=== PATIENT | female | born 1980 | race Caucasian/White ===

== ENCOUNTER → 2017-07-03 | Outpatient (REF) | payer BC | LOC: M LAB REF 10:07 | PROVIDERS: ATTEND Physician Assistant | DX: N76.0 Acute vaginitis (principal) ==

== ENCOUNTER 2018-08-30 05:57 | Day surgery (SDC) | payer BC ==
[~2018-08-30] VITALS: Ht 154.9 cm; Wt 59.4 kg
[~2018-08-30 05:57] MED LIST: DAYSTAB
[2018-08-30] MEDS ORDERED: LR 1,000 ML IV SCH ×3 (06:15→10:45)
[2018-08-30 06:34] LABS: HEMATOCRIT 42.9 % (36.0-47.0); HEMOGLOBIN 14.9 g/dl (12.0-15.5); MEAN CORPUSCULAR HEMOGLOBIN 30.8 pg (27.0-33.0); MEAN CORPUSCULAR HGB CONC 34.7 g/dl (32.0-36.5); MEAN CORPUSCULAR VOLUME 88.8 fl (80.0-96.0); PLATELET COUNT, AUTOMATED 202 10^3/uL (150-450); RED BLOOD COUNT 4.83 10^6/uL (4.00-5.40); WHITE BLOOD COUNT 6.2 10^3/uL (4.0-10.0)
[2018-08-30 06:52] LABS: URINE PREG TEST NEGATIVE (NEGATIVE)
[2018-08-30] MEDS ORDERED: ACETAMINOPHEN 650 MG SUPP PR ONE (07:00)
[2018-08-30] MEDS ORDERED: ONDANSETRON 4MG/2ML VIAL (J2405) As Ordered ONE ×2 (07:06→10:07)
[2018-08-30] MEDS ORDERED: PROPOFOL 200 MG/20 ML VIAL As Ordered ONE (07:06)
[2018-08-30] MEDS ORDERED: ROCURONIUM BROMIDE 50 MG/5 ML VIAL As Ordered ONE (07:06)
[2018-08-30] MEDS ORDERED: NEOSTIGMINE 10 MG/10 ML VIAL (J2710) As Ordered ONE (07:06)
[2018-08-30] MEDS ORDERED: LIDOCAINE 2% INJ 100 MG/5 ML SDV (FOR ANES.) As Ordered ONE (07:06)
[2018-08-30] MEDS ORDERED: KETOROLAC 60 MG/2 ML VIAL (J1885) As Ordered ONE (07:06)
[2018-08-30] MEDS ORDERED: dexameTHASONE 4 MG/ML 1ML VIAL (J1100) As Ordered ONE (07:06)
[2018-08-30] MEDS ORDERED: GLYCOPYRROLATE INJ 0.2 MG/ML 2 ML VIAL As Ordered ONE (07:06)
[2018-08-30] MEDS ORDERED: fentaNYL 100 MCG/2 ML INJECTION (J3010) As Ordered ONE ×2 (07:07→08:35)
[2018-08-30] MEDS ORDERED: MIDAZOLAM INJ 2 MG/2 ML VIAL (J2250) As Ordered ONE (07:07)
[2018-08-30] MEDS ORDERED: ACETAMINOPHEN 650 MG SUPP As Ordered ONE (07:15)
[2018-08-30] MEDS ORDERED: BUPIVACAINE/EPIN 0.25% 30 ML VIAL As Ordered ONE (07:15)
[2018-08-30] MEDS ORDERED: SUGAMMADEX SODIUM 500 MG/5 ML VIAL (BRIDION) As Ordered ONE (08:12)
[2018-08-30] MEDS ORDERED: ceFAZolin 2 GM/D5W 50 ML IV BAG (J0690 PER 500MG) As Ordered ONE (08:37)
[2018-08-30] MEDS ORDERED: IBUP80TA PO (10:15)
[2018-08-30] MEDS ORDERED: PERCOCET PO (10:15)
[2018-08-30] MEDS ORDERED: MEPERIDINE INJ 25 MG/ML VIAL (J2175) As Ordered ONE (10:19)
[2018-08-30] MEDS ORDERED: METOCLOPRAMIDE INJ 10MG/2ML VIAL (J2765) As Ordered ONE (10:19)
[2018-08-30] MEDS: MEPERIDINE INJ 25 MG/ML VIAL (J2175) IV PRN ×2 (10:25→10:43)
[2018-08-30] MEDS ORDERED: PERCOCET 5MG/325MG TAB PO PRN ×2 (10:30→10:45)
[2018-08-30] MEDS ORDERED: ONDANSETRON 4MG/2ML VIAL (J2405) IV PRN (10:30)
[2018-08-30] MEDS ORDERED: METOCLOPRAMIDE INJ 10MG/2ML VIAL (J2765) IV PRN (10:30)
[2018-08-30] MEDS ORDERED: fentaNYL 100 MCG/2 ML INJECTION (J3010) IV PRN (10:30)
[2018-08-30] MEDS ORDERED: KETOROLAC 30 MG/ML VIAL (J1885) IV PRN (10:30)
--- NOTE | 2018-08-30 10:35 | RO ---
DATE OF PROCEDURE: 08/30/2018 PREOPERATIVE DIAGNOSIS: 1. Menometrorrhagia 2. Desires permanent tubal sterilization POSTOPERATIVE DIAGNOSIS: 1. Menometrorrhagia 2. Desires permanent tubal sterilization 3. Uterine perforation PROCEDURE:1. Laparoscopic bilateral tubal ligation using filschie clips 2. Dilation and curettage 3. Attempted novasure ablation 4. Laparoscopic uterine perforation repair ANESTHESIA:General SURGEON: Davon Campbell DO [employer] PROFESSOR: srikanth Dacosta COMPLICATIONS: uterine perforation ESTIMATED BLOOD LOSS: 100 cc SPECIMENS: Maylin is a 37-year-old female with extensive history of menometrorrhagia and also multiparity who desires permanent tubal sterilization. After counseling in the office, a decision was made for a dilation and curettage (D and C) and hysteroscopy with NovaSure ablation, as well as a laparoscopic bilateral tubal ligation using Filshie clip. After visiting with the patient in the holding area, informed consent was reaffirmed. DESCRIPTION OF PROCEDURE: She was then taken to the operating room, where under general anesthetic, straight catheter bladder was performed for approximately 100 mL of clear urine. We then placed a single-tooth tenaculum on the cervix. The uterus was sounded to approximately 8 cm in size, giving a cavity length of 5. I then turned my attention to the abdomen, where a 5 mm infraumbilical incision was made using the Veress needle. The abdomen was insufflated with CO2 gas to approximately 3.5 liters. We then placed an 8 mm right lateral port. At this point, the pelvis and abdominal areas were inspected. The uterus was found to be retroverted. Bilateral fallopian tubes noted. No evidence of any other abnormalities noted. At this point, a Filshie clip was then applied approximately 2-3 cm away from the cornual area in each tube. Bilateral ovaries appeared to be within normal limits. Good hemostasis noted. We then left the trocars in placed and went down to the vagina where the cervix was serially dilated. The hysteroscope inserted. A normal-appearing endometrial cavity noted with bilateral tubal ostia visualized. At this point, the hysteroscope was removed, and the NovaSure device was then placed in. The cavity length was adjusted to 5, the cavity width to 4.0. At this point, we attempt at performing a cavity test. The cavity test failed, given that the trocars were in. I took a second look abdominally and saw there was a right fundal uterine perforation with small oozing at that area. Given the perforation, I then attempted to seal it with a grasper, and we were not able to perform the cavity test at this point. The perforation was then repaired using an Endo stitch of 2-0 V-Loc suture. The area was completely repaired. Seal fibrin was then placed over that area to achieve good hemostasis. The patient did receive 2 grams of Ancef after the notice of the perforation, and the abdomen was then insufflated with normal saline and cleared out completely prior to repair of the perforation. Once the perforation was repaired and good hemostasis noted, all instruments were removed. The laparoscopic ports were closed using 0 Vicryl on the fascia, and the skin was reapproximated using Dermabond. Good hemostasis noted. 0.25% Marcaine placed for postoperative pain. The patient tolerated the procedure well. She was then transferred to recovery room in stable condition. Please also note that the findings were discussed with the patient's partner in the waiting area. We then advised her partner that she would need further intervention, and that would be discussed in the office. Please note that the endometrial ablation cycle was not completed due to the perforation. AIME
[2018-08-30] MEDS ORDERED: IBUPROFEN 800 MG TAB PO SCH ×2 (10:45→14:00)
[2018-08-30] MEDS: MORPHINE 10 MG/ML 1ML VIAL (J2270) IV PRN ×3 (10:50→11:02)
[2018-08-30] MEDS ORDERED: PROMETHAZINE INJ 25 MG/ML VIAL (J2550) IV ONE (11:00)
[2018-08-30 11:40] VITALS: BP 119/65
[2018-08-30 12:10] VITALS: BP 120/63
[2018-08-30 12:40] VITALS: BP 125/70
[2018-08-30 13:40] VITALS: BP 130/70
[2018-08-30 14:40] VITALS: BP 129/72
== END 2018-08-30 15:25 | disposition home or self-care (01) ==
LOC: M SDC 05:57 → M PED 11:31 → M SDC 15:25
PROVIDERS: ATTEND Obstetrics & Gynecology
DX: Z30.2 Encounter for sterilization (principal); N92.1 Excessive and frequent menstruation with irregular cycle; N99.71 Accidental puncture and laceration of a genitourinary system organ or structure during a genitourinary system procedure
CPT/HCPCS: 36415; 58563; 58671; 84703; 85027; 86850; 86900; 86901; 88305; A4264; J0690; J1100; J1885; J2175; J2250; J2270; J2405; J2765; J3010

== ENCOUNTER → 2019-06-13 | Outpatient (REF) | payer BC ==
[~2019-06-13] MED LIST changes: +IBUP80TA PO; +PERCOCET PO
[2019-06-13 17:47] LABS: FREE T4 1.05 NG/DL (0.76-1.46); HCG, SERUM QUANTITATIVE < 1.0 MIU/ML; THYROID STIMULATING HORMONE 0.731 uIU/ML (0.358-3.740)
[2019-06-13 17:49] LABS: FOLLICLE STIMULATING HORMONE 6.6 mIU/mL; LUTEINIZING HORMONE 4.7 mIU/mL
[2019-06-13 17:52] LABS: BASO # 0.1 10^3/uL (0.0-0.2); BASO % 1.1 % (0.0-1.0); EOS # 0.1 10^3/uL (0.0-0.5); EOS % 1.3 % (0.0-3.0); HEMOGLOBIN 15.2 g/dl (12.0-15.5); LYMPH # 1.7 10^3/uL (1.5-5.0); LYMPH % 24.6 % (24.0-44.0); MEAN CORPUSCULAR HEMOGLOBIN 31.9 pg (27.0-33.0); MEAN CORPUSCULAR HGB CONC 34.5 g/dl (32.0-36.5); MEAN CORPUSCULAR VOLUME 92.2 fl (80.0-96.0); MONO # 0.5 10^3/uL (0.0-0.8); MONO % 7.7 % (0.0-5.0); NEUTROPHILS # 4.6 10^3/uL (1.5-8.5); NEUTROPHILS % 64.9 % (36.0-66.0); PLATELET COUNT, AUTOMATED 222 10^3/uL (150-450); RED BLOOD COUNT 4.77 10^6/uL (4.00-5.40)
== END ==
LOC: M LAB REF 16:36
PROVIDERS: ATTEND Obstetrics & Gynecology
DX: N92.1 Excessive and frequent menstruation with irregular cycle (principal)

== ENCOUNTER → 2019-08-02 | Outpatient (REF) | payer BC ==
[2019-08-02 13:38] LABS: HEMATOCRIT 42.4 % (36.0-47.0); HEMOGLOBIN 14.5 g/dl (12.0-15.5); MEAN CORPUSCULAR HEMOGLOBIN 30.7 pg (27.0-33.0); MEAN CORPUSCULAR HGB CONC 34.2 g/dl (32.0-36.5); MEAN CORPUSCULAR VOLUME 89.8 fl (80.0-96.0); PLATELET COUNT, AUTOMATED 192 10^3/uL (150-450); RED BLOOD COUNT 4.72 10^6/uL (4.00-5.40)
[2019-08-02 15:04] LABS: HCG, SERUM QUANTITATIVE 128165 MIU/ML
[2019-08-03 09:30] LABS: RUBELLA IgG QUALITATIVE IMMUNE (IMMUNE)
[2019-08-03 10:01] LABS: HIV 1&2 SCREEN CENTAUR NEGATIVE (NEGATIVE)
== END ==
LOC: M LAB REF 12:51
PROVIDERS: ATTEND Obstetrics & Gynecology
DX: O36.80X0 Pregnancy with inconclusive fetal viability, not applicable or unspecified (principal); Z3A.00 Weeks of gestation of pregnancy not specified

== ENCOUNTER 2019-11-14 06:11 | Day surgery (SDC) | payer BC, OTHER ==
[~2019-11-14] VITALS: Ht 154.9 cm; Wt 64.1 kg
[~2019-11-14 06:11] MED LIST changes: -DAYSTAB; +DAYSTAB PO
[2019-11-14 06:46] LABS: HEMATOCRIT 40.9 % (36.0-47.0); HEMOGLOBIN 14.1 g/dl (12.0-15.5); MEAN CORPUSCULAR HEMOGLOBIN 30.9 pg (27.0-33.0); MEAN CORPUSCULAR HGB CONC 34.5 g/dl (32.0-36.5); MEAN CORPUSCULAR VOLUME 89.5 fl (80.0-96.0); PLATELET COUNT, AUTOMATED 229 10^3/uL (150-450); RED BLOOD COUNT 4.57 10^6/uL (4.00-5.40); WHITE BLOOD COUNT 5.5 10^3/uL (4.0-10.0)
[2019-11-14] MEDS ORDERED: ceFAZolin SOD 2 GM in IV 1 EA IV ONE (07:00)
[2019-11-14] MEDS ORDERED: LR 1,000 ML IV ONE (07:00)
[2019-11-14] MEDS ORDERED: SCOPOLAMINE 1MG TRANSDERMAL PATCH As Ordered ONE (07:10)
[2019-11-14] MEDS ORDERED: ROCURONIUM BROMIDE 50 MG/5 ML VIAL As Ordered ONE (07:12)
[2019-11-14] MEDS ORDERED: propofoL 200 MG/20 ML VIAL As Ordered ONE (07:12)
[2019-11-14] MEDS ORDERED: LIDOCAINE 2% INJ 100 MG/5 ML SDV (FOR ANES.) As Ordered ONE ×2 (07:12→07:15)
[2019-11-14] MEDS ORDERED: MIDAZOLAM INJ 2 MG/2 ML VIAL (J2250) As Ordered ONE (07:13)
[2019-11-14] MEDS ORDERED: dexameTHASONE 4 MG/ML 1ML VIAL (J1100) As Ordered ONE (07:13)
[2019-11-14] MEDS ORDERED: ONDANSETRON 4MG/2ML VIAL (J2405) As Ordered ONE (07:13)
[2019-11-14] MEDS ORDERED: fentaNYL 100 MCG/2 ML INJECTION (J3010) As Ordered ONE ×2 (07:13→08:41)
[2019-11-14] MEDS ORDERED: METOCLOPRAMIDE INJ 10MG/2ML VIAL (J2765) As Ordered ONE (07:13)
[2019-11-14] MEDS ORDERED: KETOROLAC 60 MG/2 ML VIAL (J1885) As Ordered ONE (07:14)
[2019-11-14] MEDS ORDERED: SUGAMMADEX SODIUM 500 MG/5 ML VIAL (BRIDION) As Ordered ONE (07:14)
[2019-11-14] MEDS ORDERED: BUPIVACAINE HCL 0.25% 10 ML VIAL As Ordered ONE (07:19)
[2019-11-14] MEDS ORDERED: SCOPOLAMINE 1MG TRANSDERMAL PATCH TOP ONE (08:00)
[2019-11-14] MEDS ORDERED: ACETAMINOPHEN 1000MG 100ML IV BTL (OFIRMEV) (J0131 PER 10MG) As Ordered ONE (08:49)
[2019-11-14] MEDS ORDERED: PERCOCET 5MG/325MG TAB PO PRN ×2 (10:15)
[2019-11-14] MEDS ORDERED: fentaNYL 100 MCG/2 ML INJECTION (J3010) IV PRN (10:15)
[2019-11-14] MEDS ORDERED: oxyCODONE 5MG TAB PO PRN (10:15)
[2019-11-14] MEDS ORDERED: ONDANSETRON 4MG/2ML VIAL (J2405) IV PRN ×2 (10:15)
[2019-11-14] MEDS ORDERED: MORPHINE 4 MG/ML 1ML VIAL/SYRINGE (J2270) IV PRN (10:15)
[2019-11-14] MEDS ORDERED: LR 1,000 ML IV SCH ×2 (10:15)
[2019-11-14 11:45] VITALS: BP 117/67
[2019-11-14 12:21] VITALS: BP 114/72
[2019-11-14] MEDS ORDERED: KETOROLAC 30 MG/ML VIAL (J1885) IV PRN (13:00)
[2019-11-14 13:36] VITALS: BP 117/64
[2019-11-14 15:30] VITALS: BP 116/65
[2019-11-14 16:30] VITALS: BP 115/67
[2019-11-14] MEDS ORDERED: OXYC1TAB23 PO (17:10)
[2019-11-14] MEDS ORDERED: IBUP-1022 PO (17:11)
[2019-11-14 17:30] VITALS: BP 115/69
[2019-11-14] MEDS ORDERED: DOCUSATE SODIUM 100 MG CAP PO SCH (21:00)
--- NOTE | 2019-11-15 08:19 | RO ---
DATE OF PROCEDURE: 11/14/2019 PREPROCEDURE DIAGNOSIS: Menorrhagia. POSTPROCEDURE DIAGNOSIS: Menorrhagia. PROCEDURE: Robotic assisted laparoscopic hysterectomy and bilateral salpingectomy. SURGEON: Scottie Martines MD WIRE TINNER: Jovita Dacosta NP ANESTHESIA: General endotracheal. ESTIMATED BLOOD LOSS: 100 mL. URINE OUTPUT: 100 mL. FINDINGS: Normal size uterus, fallopian tubes with evidence of prior tubal sterilization, Filshie Clips present. Normal ovaries. Normal upper abdomen including liver, gallbladder, and stomach. OPERATIVE SUMMARY: The patient was taken to operating room where general endotracheal anesthesia was induced. She was prepped and draped in a sterile fashion in the dorsal lithotomy position. A Blackman catheter was placed and a VCare uterine manipulator was placed. A periumbilical incision was made with a scalpel. A Veress needle was placed through this incision and pneumoperitoneum was created. Veress needle was removed. An 8 mm trocar using [employer] was inserted through this incision. Three 8 mm suprapubic ports were placed under direct visualization. The patient was placed in Trendelenburg position. The da Maya surgical robot was docked at the ports. Using the fenestrated bipolar of the vessel sealer the broad ligament attached to the fallopian tube are coagulated and incised. The utero-ovarian ligaments and round ligaments were coagulated and incised. The anterior and posterior leaflets of the broad ligament were . A bladder flap was created. The uterine vessels were skeletonized. The uterine vessel was then coagulated and incised. A colpotomy was created in the upper vagina at the level of the VCare cut using monopolar Endo Annmarie. This was extended circumferentially around the vagina. Specimen including the uterus, cervix, and fallopian tubes were removed through the vagina. The vaginal cuff was closed with #1 V-Loc suture in a running fashion. The pelvis was irrigated. Good hemostasis was noted. Cystoscopy was performed using a 70 degree cystoscope here, bilateral ureteral jets were identified. There is no evidence of injury to the bladder. All instruments were removed. The skin was closed with #4-0 Monocryl subcuticular sutures. Sponge, instrument, and needle counts were correct. Jovita Dacosta NP assisted throughout the procedure from beginning to end. She positioned the patient, help insert the ports. She manipulated the uterus and removed the specimen at the end of the procedure. She was indispensable to the successful completion of the procedure.
== END 2019-11-14 19:10 | disposition home or self-care (01) ==
LOC: M SDC 06:11 → M MS5PR 11:30 → M SDC 19:10
PROVIDERS: ATTEND Specialist
DX: N92.0 Excessive and frequent menstruation with regular cycle (principal); R10.2 Pelvic and perineal pain; N72 Inflammatory disease of cervix uteri
CPT/HCPCS: 36415; 58571; 85027; 86850; 86900; 86901; 88307; 96372; J0131; J0690; J1100; J1885; J2250; J2405; J2765; J3010

== ENCOUNTER → 2023-03-18 | Outpatient (CLI) | payer OTHER ==
[~2023-03-18] MED LIST changes: +IBUP-1022 PO; +OXYC1TAB23 PO
== END ==
LOC: M WHC 08:25
PROVIDERS: ATTEND Internal Medicine
DX: Z12.31 Encounter for screening mammogram for malignant neoplasm of breast (principal)

== ENCOUNTER → 2023-04-12 | Outpatient (CLI) | payer OTHER | LOC: M WHC 08:19 | PROVIDERS: ATTEND Internal Medicine | DX: R92.8 Other abnormal and inconclusive findings on diagnostic imaging of breast (principal); N63.21 Unspecified lump in the left breast, upper outer quadrant | CPT/HCPCS: 76641; 77066; G0279 ==

== ENCOUNTER → 2023-10-19 | Outpatient (CLI) | payer OTHER | LOC: M WHC 08:33 | PROVIDERS: ATTEND Internal Medicine | DX: R92.30 Dense breasts, unspecified (principal); N63.21 Unspecified lump in the left breast, upper outer quadrant | CPT/HCPCS: 77065; G0279 ==

== ENCOUNTER → 2024-04-25 | Outpatient (CLI) | payer OTHER | LOC: M WHC 09:36 | PROVIDERS: ATTEND Internal Medicine | DX: Z12.31 Encounter for screening mammogram for malignant neoplasm of breast (principal) | CPT/HCPCS: 77066; G0279 ==